=== PATIENT | male | born 1955 | race Caucasian/White ===

== ENCOUNTER 2024-04-01 17:34 | Inpatient (IN) | payer BC, MEDICAID ==
[~2024-04-01] VITALS: Ht 152.4 cm; Wt 51.6 kg
[~2024-04-01 17:34] MED LIST: AMLO10TA13 PO; AMLO5TAB16 PO; CLOP75TA34 PO; METO100T14 PO; PANT40TA54 PO; PHO667C; SEVE2.4P3 PO
[2024-04-01 18:21] LABS: BASOPHILS % (AUTO) 0.3 % (0-1); EOSINOPHILS % (AUTO) 0.5 % (0-6); HEMATOCRIT 37.1 % (42.0-52.0); HEMOGLOBIN 11.9 g/dl (14.0-17.9); LYMPHOCYTES # (AUTO) 0.3 X10'3 (1.1-4.8); LYMPHOCYTES % (AUTO) 5.3 % (21-51); MEAN CORPUSCULAR HEMOGLOBIN 27.1 PG (27.0-31.0); MEAN CORPUSCULAR VOLUME 84.8 FL (78-98); MEAN PLATELET VOLUME 8.4 FL (7.4-10.4); MONOCYTES # (AUTO) 0.1 X10'3 (0-0.9); MONOCYTES % (AUTO) 1.5 % (2-12); NEUTROPHILS # (AUTO) 5.4 X10'3 (1.8-7.7); NEUTROPHILS % (AUTO) 92.4 % (42-75); PLATELET COUNT 196 X10'3 (140-440); RED BLOOD COUNT 4.38 X10'6 (4.70-6.10); RED CELL DISTRIBUTION WIDTH 19.2 % (11.5-14.5); WHITE BLOOD COUNT 5.9 X10'3 (4.5-11.0)
[2024-04-01 18:34] LABS: ANION GAP 12 (8-16); BLOOD UREA NITROGEN 53 MG/DL (7-18); BUN/CREATININE RATIO 9.9 (10.0-20.0); CALCIUM 10.2 MG/DL (8.5-10.1); CHLORIDE 97 MMOL/L (99-107); CREATININE 5.35 MG/DL (0.60-1.10); GLUCOSE 156 MG/DL (70-104); POTASSIUM 3.9 MMOL/L (3.5-5.1); SODIUM 135 MMOL/L (135-145); TOTAL CARBON DIOXIDE 26.5 MMOL/L (24-32); eCRCL 10 ML/MIN; eGFR 11 ML/MIN
[2024-04-01] MEDS ORDERED: potassium Cl 20 mEq SR tablet PO PRN ×2 (20:10)
[2024-04-01] MEDS ORDERED: acetaminophen 325mg tablet PO PRN (20:10)
[2024-04-01] MEDS ORDERED: magnesium sulf-water 2g/50mL 50 ML IV PRN (20:10)
[2024-04-01] MEDS ORDERED: magnesium hydroxide 30ml (MOM) UD suspension PO PRN (20:10)
[2024-04-01] MEDS ORDERED: potassium Cl 40MEQ/1/2NS 520ml 520 ML IV PRN (20:10)
[2024-04-01] MEDS ORDERED: magnesium Cl slow-release 64mg tablet PO PRN (20:10)
[2024-04-01] MEDS ORDERED: magnesium sulf-water 4G/100mL 100 ML IV PRN (20:10)
[2024-04-01 20:44] LABS: APTT 30 SECONDS (22-32); PROTHROMBIN TIME 10.7 SECONDS (9.0-12.0)
[2024-04-01 20:45] LABS: ALANINE AMINOTRANSFERASE 9 U/L (12-78); ALBUMIN 3.4 G/DL (3.4-5.0); ALBUMIN/GLOBULIN RATIO 0.8 (1.1-1.5); ALKALINE PHOSPHATASE 110 IU/L (46-116); ANION GAP 11 (8-16); ASPARTATE AMINO TRANSFERASE 13 U/L (10-37); BILIRUBIN,TOTAL 0.9 MG/DL (0.1-1.0); BLOOD UREA NITROGEN 55 MG/DL (7-18); BUN/CREATININE RATIO 9.5 (10.0-20.0); CALCIUM 10.5 MG/DL (8.5-10.1); CHLORIDE 97 MMOL/L (99-107); CREATININE 5.79 MG/DL (0.60-1.10); GLUCOSE 201 MG/DL (70-104); POTASSIUM 4.3 MMOL/L (3.5-5.1); SODIUM 137 MMOL/L (135-145); TOTAL CARBON DIOXIDE 28.6 MMOL/L (24-32); TOTAL PROTEIN 7.9 G/DL (6.4-8.2); eCRCL 9 ML/MIN; eGFR 10 ML/MIN
[2024-04-01 20:53] LABS: MAGNESIUM 2.6 MG/DL (1.5-2.4)
[2024-04-01 21:10] LABS: HEMOGLOBIN A1C 5.7 % (4.5-6.2); PRO BRAIN NATRIURETIC PEPTIDE > 30000 PG/ML (0-125)
[2024-04-01 21:30] VITALS: PULSE 107; RESP 20; O2SAT 95
[2024-04-01] MEDS ORDERED: ATOR40TA PO (21:38)
[2024-04-01] MEDS ORDERED: CARV-50 PO (21:38)
[2024-04-01] MEDS ORDERED: SERT25TA PO (21:38)
[2024-04-01] MEDS: atorvastatin 20mg tablet PO SCH (22:17)
[2024-04-01] MEDS: carVEDilol 12.5mg tablet PO SCH (22:18)
[2024-04-01] MEDS: metoprolol tartrate 50mg tablet PO ONE (22:19)
[2024-04-01] MEDS: furosemide 10 MG/1 ML 10ml inj IV ONE (22:22)
[2024-04-01] MEDS: guaiFENesin ER 600mg tablet PO SCH (23:42)
[2024-04-01] MEDS: methylPREDNISolone sod succ/PF 40mg inj. IV SCH (23:42)
[2024-04-02] VITALS (15 sets, daily range): BP systolic 99–134; BP diastolic 45–89; PULSE 62–80; RESP 14–22; TEMP 96.9–98.1; O2SAT 88–99
[2024-04-02] MEDS: ondansetron/PF 4mg/2ml inj IV PRN (00:36)
[2024-04-02] MEDS: mag hydrox/Alum hydrox/simeth 30ml oral suspension PO PRN (04:47)
[2024-04-02 07:17] LABS: BASOPHILS % (AUTO) 0.1 % (0-1); EOSINOPHILS % (AUTO) 0 % (0-6); HEMOGLOBIN 10.9 g/dl (14.0-17.9); LYMPHOCYTES # (AUTO) 0.4 X10'3 (1.1-4.8); LYMPHOCYTES % (AUTO) 7.1 % (21-51); MEAN CORPUSCULAR HEMOGLOBIN 27.3 PG (27.0-31.0); MEAN CORPUSCULAR HGB CONC 32.2 g/dL (33.0-36.5); MEAN CORPUSCULAR VOLUME 84.9 FL (78-98); MEAN PLATELET VOLUME 9.2 FL (7.4-10.4); MONOCYTES # (AUTO) 0.1 X10'3 (0-0.9); MONOCYTES % (AUTO) 1.5 % (2-12); NEUTROPHILS # (AUTO) 5.6 X10'3 (1.8-7.7); NEUTROPHILS % (AUTO) 91.3 % (42-75); PLATELET COUNT 205 X10'3 (140-440); RED CELL DISTRIBUTION WIDTH 19.4 % (11.5-14.5); WHITE BLOOD COUNT 6.1 X10'3 (4.5-11.0)
[2024-04-02 07:38] LABS: ALBUMIN 2.9 G/DL (3.4-5.0); ANION GAP 10 (8-16); BLOOD UREA NITROGEN 71 MG/DL (7-18); BUN/CREATININE RATIO 10.9 (10.0-20.0); CALCIUM 9.8 MG/DL (8.5-10.1); CHLORIDE 96 MMOL/L (99-107); CHOL/HDL RATIO 3.6 (0.00-4.99); CHOLESTEROL 186 MG/DL (0-200); GLUCOSE 184 MG/DL (70-104); HDL CHOLESTEROL 52 MG/DL (35-60); LDL CHOLESTEROL 126 MG/DL (50-100); MAGNESIUM 3.5 MG/DL (1.5-2.4); POTASSIUM 4.9 MMOL/L (3.5-5.1); SODIUM 135 MMOL/L (135-145); TOTAL CARBON DIOXIDE 29.2 MMOL/L (24-32); TRIGLYCERIDES 68 MG/DL (20-135); eCRCL 8 ML/MIN; eGFR 9 ML/MIN
[2024-04-02] MEDS: K and/or MAG REPLACEMENT MC SCH (08:00)
[2024-04-02] MEDS ORDERED: docusate sod 100mg capsule PO SCH (08:00)
[2024-04-02] MEDS ORDERED: nitroGLYCERIN 0.4mg SUBLingual tab SL PRN (09:10)
[2024-04-02] MEDS ORDERED: regadenoson 0.4mg/5ml syringe IV PRN (09:10)
[2024-04-02] MEDS ORDERED: metoprolol tartrate 1mg/ml inj IV PRN (09:10)
[2024-04-02] MEDS: clopidogrel 75mg tablet PO SCH (09:17)
[2024-04-02] MEDS: sertraline 50mg tablet PO SCH (09:17)
[2024-04-02] MEDS: pantoprazole 40mg Tablet.DR PO SCH (09:17)
[2024-04-02] MEDS: amLODIPine 5mg tablet PO SCH (09:18)
[2024-04-02] MEDS: metoprolol tartrate 50mg tablet PO SCH (09:18)
[2024-04-02 09:37] LABS: ANISOCYTOSIS 2+; ELLIPTOCYTES FEW; PLATELET ESTIMATE NORMAL; POLYCHROMASIA 1+
[2024-04-02] MEDS: guaiFENesin 200 MG/10 ML oral syrup UD cup PEG SCH (09:53)
[2024-04-02 09:59] LABS: CREATINE KINASE 51 U/L (39-308); LIPASE 27 U/L (16-77); PHOSPHORUS 4.9 MG/DL (2.3-4.5); THYROID STIMULATING HORMONE 1.15 ulU/ml (0.34-4.50)
[2024-04-02 10:26] LABS: D-DIMER 1.99 MG/L FEU (0-0.50)
[2024-04-02] MEDS: heparin 1,000 units/ml 10ml inj HE ONE ×2 (11:25)
[2024-04-02] MEDS: heparin 1,000unit/ml 10ml vial 10 ML IV ONE (11:26)
[2024-04-02] MEDS: heparin 1,000 units/ml 10ml inj IV ONE (11:26)
[2024-04-02] MEDS ORDERED: iohexol 350MG/ML 100ml bottle IV ONE (14:43)
[2024-04-02] MEDS: carVEDilol 12.5mg tablet PEG SCH (20:00)
[2024-04-02] MEDS: metoprolol tartrate 50mg tablet PEG SCH (20:00)
[2024-04-02] MEDS: docusate sodium 100mg/10ml UD cup PEG SCH (20:58)
[2024-04-02] MEDS: atorvastatin 20mg tablet PEG SCH (21:04)
[2024-04-03] VITALS (22 sets, daily range): BP systolic 90–118; BP diastolic 26–73; PULSE 56–71; RESP 11–22; TEMP 97–98; O2SAT 95–99
[2024-04-03 07:37] LABS: BASOPHILS % (AUTO) 0 % (0-1); EOSINOPHILS % (AUTO) 0 % (0-6); HEMATOCRIT 32.6 % (42.0-52.0); HEMOGLOBIN 10.4 g/dl (14.0-17.9); LYMPHOCYTES # (AUTO) 0.6 X10'3 (1.1-4.8); LYMPHOCYTES % (AUTO) 4.9 % (21-51); MEAN CORPUSCULAR HEMOGLOBIN 27.6 PG (27.0-31.0); MEAN CORPUSCULAR VOLUME 86.4 FL (78-98); MEAN PLATELET VOLUME 9.2 FL (7.4-10.4); MONOCYTES # (AUTO) 0.6 X10'3 (0-0.9); NEUTROPHILS # (AUTO) 10.9 X10'3 (1.8-7.7); NEUTROPHILS % (AUTO) 90.1 % (42-75); PLATELET COUNT 196 X10'3 (140-440); RED BLOOD COUNT 3.78 X10'6 (4.70-6.10); RED CELL DISTRIBUTION WIDTH 19.5 % (11.5-14.5); WHITE BLOOD COUNT 12.1 X10'3 (4.5-11.0)
[2024-04-03] MEDS: amLODIPine 5mg tablet PEG SCH (08:00)
[2024-04-03 08:04] LABS: ANION GAP 14 (8-16); BLOOD UREA NITROGEN 66 MG/DL (7-18); BUN/CREATININE RATIO 11.1 (10.0-20.0); CHLORIDE 96 MMOL/L (99-107); CREATININE 5.97 MG/DL (0.60-1.10); GLUCOSE 165 MG/DL (70-104); MAGNESIUM 3.1 MG/DL (1.5-2.4); POTASSIUM 5.2 MMOL/L (3.5-5.1); PREALBUMIN 30.1 MG/DL (19-36); SODIUM 133 MMOL/L (135-145); eCRCL 9 ML/MIN; eGFR 10 ML/MIN
[2024-04-03] MEDS: pantoprazole 40 MG vial IV SCH (08:48)
[2024-04-03] MEDS: regadenoson 0.4mg/5ml syringe IV ONE (09:58)
[2024-04-03] MEDS: aminophylline 250mg/10ml inj. IV PRN (10:16)
[2024-04-03] MEDS: clopidogrel 75mg tablet PEG SCH (11:08)
[2024-04-03] MEDS: sertraline 50mg tablet PEG SCH (11:09)
[2024-04-04] VITALS (13 sets, daily range): BP systolic 86–113; BP diastolic 54–74; PULSE 60–70; RESP 14–22; TEMP 97–98.5; O2SAT 94–100
[2024-04-04 05:12] LABS: HBSAG SCREEN Negative (Negative)
[2024-04-04 07:46] LABS: BASOPHILS % (AUTO) 0.1 % (0-1); EOSINOPHILS % (AUTO) 0 % (0-6); HEMATOCRIT 31.3 % (42.0-52.0); HEMOGLOBIN 10.2 g/dl (14.0-17.9); LYMPHOCYTES # (AUTO) 0.9 X10'3 (1.1-4.8); LYMPHOCYTES % (AUTO) 9.5 % (21-51); MEAN CORPUSCULAR HEMOGLOBIN 28.2 PG (27.0-31.0); MEAN CORPUSCULAR HGB CONC 32.4 g/dL (33.0-36.5); MEAN CORPUSCULAR VOLUME 86.8 FL (78-98); MEAN PLATELET VOLUME 9.6 FL (7.4-10.4); MONOCYTES # (AUTO) 0.7 X10'3 (0-0.9); MONOCYTES % (AUTO) 7.5 % (2-12); NEUTROPHILS % (AUTO) 82.9 % (42-75); PLATELET COUNT 187 X10'3 (140-440); RED BLOOD COUNT 3.61 X10'6 (4.70-6.10); RED CELL DISTRIBUTION WIDTH 19.7 % (11.5-14.5); WHITE BLOOD COUNT 9.7 X10'3 (4.5-11.0)
[2024-04-04 08:52] LABS: ANION GAP 16 (8-16); BLOOD UREA NITROGEN 105 MG/DL (7-18); BUN/CREATININE RATIO 13.3 (10.0-20.0); CALCIUM 9.1 MG/DL (8.5-10.1); CHLORIDE 93 MMOL/L (99-107); CREATININE 7.89 MG/DL (0.60-1.10); GLUCOSE 166 MG/DL (70-104); MAGNESIUM 3.5 MG/DL (1.5-2.4); POTASSIUM 5.6 MMOL/L (3.5-5.1); SODIUM 131 MMOL/L (135-145); eCRCL 7 ML/MIN; eGFR 7 ML/MIN
[2024-04-04 09:21] LABS: PLATELET ESTIMATE NORMAL
[2024-04-04 09:22] LABS: ANISOCYTOSIS 2+; BURR CELLS 2+; ELLIPTOCYTES FEW; HYPOCHROMASIA 1+; POLYCHROMASIA FEW
[2024-04-04] MEDS: albumin (human) 25% 100ml IV 100 ML IV PRN (10:54)
[2024-04-04] MEDS: heparin 1,000unit/ml 10ml vial 10 ML IV ONE (11:13)
[2024-04-04] MEDS: heparin 1,000 units/ml 10ml inj IV ONE (11:13)
[2024-04-04] MEDS: heparin 1,000 units/ml 10ml inj HE ONE ×2 (11:14→11:15)
[2024-04-05 06:00] VITALS: BP 117/82; PULSE 62; RESP 18; TEMP 97.5; O2SAT 99
[2024-04-05 07:32] LABS: ALBUMIN 3.5 G/DL (3.4-5.0); ANION GAP 12 (8-16); BLOOD UREA NITROGEN 66 MG/DL (7-18); BUN/CREATININE RATIO 11.7 (10.0-20.0); CALCIUM 8.8 MG/DL (8.5-10.1); CHLORIDE 99 MMOL/L (99-107); CREATININE 5.62 MG/DL (0.60-1.10); GLUCOSE 136 MG/DL (70-104); MAGNESIUM 2.8 MG/DL (1.5-2.4); POTASSIUM 5.1 MMOL/L (3.5-5.1); SODIUM 136 MMOL/L (135-145); TOTAL CARBON DIOXIDE 25.5 MMOL/L (24-32); eCRCL 9 ML/MIN; eGFR 10 ML/MIN
[2024-04-05 07:44] LABS: BASOPHILS % (AUTO) 0 % (0-1); EOSINOPHILS % (AUTO) 0 % (0-6); HEMATOCRIT 31.4 % (42.0-52.0); HEMOGLOBIN 10.2 g/dl (14.0-17.9); LYMPHOCYTES % (AUTO) 11.5 % (21-51); MEAN CORPUSCULAR HEMOGLOBIN 27.8 PG (27.0-31.0); MEAN CORPUSCULAR HGB CONC 32.5 g/dL (33.0-36.5); MEAN CORPUSCULAR VOLUME 85.6 FL (78-98); MEAN PLATELET VOLUME 9.6 FL (7.4-10.4); MONOCYTES # (AUTO) 0.7 X10'3 (0-0.9); MONOCYTES % (AUTO) 7.7 % (2-12); NEUTROPHILS # (AUTO) 6.9 X10'3 (1.8-7.7); NEUTROPHILS % (AUTO) 80.8 % (42-75); PLATELET COUNT 173 X10'3 (140-440); RED BLOOD COUNT 3.67 X10'6 (4.70-6.10); RED CELL DISTRIBUTION WIDTH 19.5 % (11.5-14.5); WHITE BLOOD COUNT 8.5 X10'3 (4.5-11.0)
[2024-04-05 11:00] VITALS: BP 102/53; PULSE 80; RESP 16; TEMP 98.1; O2SAT 100
== END 2024-04-05 14:56 | disposition home or self-care (01) | DRG 280 ==
LOC: ER 17:35 → ED HOLD 19:33 → PCU 3S 04-02 01:45
PROVIDERS: ADMIT Internal Medicine Sleep Medicine; ATTEND Family Medicine
PROC: 5A1D70Z Performance of Urinary Filtration, Intermittent, Less than 6 Hours Per Day (ICD-10-PCS; principal; 2024-04-02)
PROC: B32T1ZZ Computerized Tomography (CT Scan) of Left Pulmonary Artery using Low Osmolar Contrast (ICD-10-PCS; 2024-04-02)
PROC: B3201ZZ Computerized Tomography (CT Scan) of Thoracic Aorta using Low Osmolar Contrast (ICD-10-PCS; 2024-04-02)
PROC: B32S1ZZ Computerized Tomography (CT Scan) of Right Pulmonary Artery using Low Osmolar Contrast (ICD-10-PCS; 2024-04-02)
PROC: 4A02XM4 Measurement of Cardiac Total Activity, External Approach (ICD-10-PCS; 2024-04-03)
PROC: 3E033HZ Introduction of Radioactive Substance into Peripheral Vein, Percutaneous Approach (ICD-10-PCS; 2024-04-03)
PROC: 5A1D70Z Performance of Urinary Filtration, Intermittent, Less than 6 Hours Per Day (ICD-10-PCS; 2024-04-04)
DX: I13.2 Hypertensive heart and chronic kidney disease with heart failure and with stage 5 chronic kidney disease, or end stage renal disease (principal); I50.23 Acute on chronic systolic (congestive) heart failure; I21.A1 Myocardial infarction type 2; N18.6 End stage renal disease; J44.1 Chronic obstructive pulmonary disease with (acute) exacerbation; K21.9 Gastro-esophageal reflux disease without esophagitis; Z20.822 Contact with and (suspected) exposure to COVID-19; I25.10 Atherosclerotic heart disease of native coronary artery without angina pectoris; E78.5 Hyperlipidemia, unspecified; Z88.8 Allergy status to other drugs, medicaments and biological substances; Z79.01 Long term (current) use of anticoagulants; Z79.899 Other long term (current) drug therapy; Z87.11 Personal history of peptic ulcer disease; Z95.0 Presence of cardiac pacemaker; Z95.5 Presence of coronary angioplasty implant and graft; Z99.2 Dependence on renal dialysis; Z85.21 Personal history of malignant neoplasm of larynx
CPT/HCPCS: 36415; 71045; 71275; 78452; 80048; 80053; 80061; 82550; 83036; 83690; 83735; 83880; 84100; 84134; 84443; 84484; 85008; 85025; 85379; 85610; 85730; 86706; 87081; 87340; 87502; 87503; 87811; 92508; 92616; 93005; 93017; 94760; 99291; A4615; A6449; A9500; E1594; G0257; G0378; J0280; J1644; J2405; J2470; J2785; J2919; J7030; P9047; Q9967